=== PATIENT | female | born 1960 | race Caucasian/White ===

== ENCOUNTER → 2016-03-07 | Outpatient (CLI) | payer BC ==
[~2016-03-07] MED LIST: ADVI200T PO; ASPI81TA85 PO; Amberen PO; BENA25CA2 PO; BIOF4GEL2 EX; BIOF4GEL2 TOP; CENTTAB47 PO; CYCL5TA PO; DRIS50002 PO; DULO30CA PO; FLEX5TAB3 PO; GABA100C PO; OXYC-299 PO; PERC5TAB6 PO; TYLE325T5 PO; VICO5TAB PO; VICO5TAB16 PO; VITA500047 PO; VOLT1GEL2 TD; XANA0.5T PO; ZOFR4SOL PO; [UNRECOGNIZED DRUG - OTHER] PO; xanax PO
[2016-03-07 13:22] LABS: MEAN CORPUSCULAR HEMOGLOBIN 31.3 pg (27.0-33.0); MEAN CORPUSCULAR HGB CONC 33.4 g/dl (32.0-36.5); MEAN CORPUSCULAR VOLUME 93.6 fl (80.0-96.0); RED CELL DISTRIBUTION WIDTH 13.4 % (11.5-14.5); WHITE BLOOD COUNT 4.2 K/mm3 (4.0-10.0)
[2016-03-07 14:19] LABS: ALBUMIN 3.8 GM/DL (3.2-5.2); ALBUMIN/GLOBULIN RATIO 1.31 (1.00-1.93); ALKALINE PHOSPHATASE 79 U/L (45-117); ALT/SGPT 32 U/L (12-78); ANION GAP 7 MEQ/L (8-16); AST/SGOT 16 U/L (15-37); BILIRUBIN,TOTAL 0.5 MG/DL (0.2-1.0); BLOOD UREA NITROGEN 10 MG/DL (7-18); CALCIUM LEVEL 8.5 MG/DL (8.5-10.1); CARBON DIOXIDE LEVEL 28 MEQ/L (21-32); CHLORIDE LEVEL 108 MEQ/L (98-107); CHOLESTEROL LEVEL 189 MG/DL (<200); CREATININE FOR GFR 0.75 MG/DL (0.55-1.02); GLOMERULAR FILTRATION RATE > 60.0 (>51); GLUCOSE, FASTING 111 MG/DL (70-105); POTASSIUM SERUM 4.2 MEQ/L (3.5-5.1); SODIUM LEVEL 143 MEQ/L (136-145); TOTAL PROTEIN 6.7 GM/DL (6.4-8.2); TRIGLYCERIDES LEVEL 107 MG/DL (<150)
== END ==
LOC: M WUC 08:52
PROVIDERS: ATTEND Nurse Practitioner Adult Health
DX: Z00.00 Encounter for general adult medical examination without abnormal findings (principal); E55.9 Vitamin D deficiency, unspecified

== ENCOUNTER → 2016-05-04 | Outpatient (CLI) | payer BC ==
--- NOTE | 2016-05-04 09:38 | REPMRS ---
Patient History The patient states she has not had a clinical breast exam in over a year. Patient is postmenopausal. Family history of colorectal cancer in father at age 50 or over. Digital Woman Screen Mammo: May 04, 2016 - Exam #: [id number] Bilateral CC and MLO view(s) were taken. Technologist: Tory Estevez, Technologist Prior study comparison: December 05, 2013, digital woman screen mammo performed at [facility]. April 27, 2009, bilateral bilat screen digital mammo performed at [facility] to [facility]. FINDINGS: There are scattered fibroglandular densities. There has been no change in the appearance of the mammogram from the prior studies. There is a mild amount of residual fibroglandular tissue which is fairly symmetric. There is no interval development of dominant mass, architectural distortion, or clustered microcalcification suggestive of malignancy. ASSESSMENT: BI-RADS/ACR category 1 mammogram. Negative. Recommendation Routine screening mammogram in 1 year (for women over age 40). This mammogram was interpreted with the aid of an FDA-approved computer-aided dectection system. Electronically Signed By: Mick Goode MD 05/04/16 0923
== END ==
LOC: M WHC 08:25
PROVIDERS: ATTEND Nurse Practitioner Adult Health
DX: Z12.31 Encounter for screening mammogram for malignant neoplasm of breast (principal)

== ENCOUNTER → 2016-08-22 | Outpatient (CLI) | payer BC ==
[~2016-08-22] MED LIST changes: +OXYC-141 PO; -OXYC-299 PO; +PERC5TAB12 PO; -PERC5TAB6 PO
--- NOTE | 2016-08-22 14:38 | REP ---
Chest two views HISTORY: Pneumonia Comparison: 08/06/2014 The lungs are clear. The heart is normal in size. The pulmonary vasculature is normal in appearance. The bony structure is intact. IMPRESSION: No acute disease. Signed by Yuri Costa MD 08/22/2016 02:29 P
== END ==
LOC: M WUC 13:06
PROVIDERS: ATTEND Nurse Practitioner Adult Health
DX: J18.1 Lobar pneumonia, unspecified organism (principal)

== ENCOUNTER → 2016-10-06 | Outpatient (REF) | payer BC ==
[2016-10-06 15:52] LABS: PROGESTERONE < 0.2 NG/ML
[2016-10-06 15:53] LABS: ESTRADIOL < 19.0 PG/ML; FOLLICLE STIMULATING HORMONE 118.3 mIU/mL; LUTEINIZING HORMONE 47.1 mIU/mL
[2016-10-11 00:06] LABS: ESTRONE SERUM 60 pg/mL (.)
== END ==
LOC: M LAB REF 10:04
PROVIDERS: ATTEND Obstetrics & Gynecology
DX: N95.9 Unspecified menopausal and perimenopausal disorder (principal)

== ENCOUNTER → 2016-10-10 | Outpatient (CLI) | payer BC ==
[~2016-10-10] MED LIST changes: +METHACHOLINE KIT (J7674) INH ONE
--- NOTE | 2016-10-10 08:35 | PFTRPT ---
Tech: Sreekanth Arreguin RUST PROOFER Age: 56 Sex: Female Race: Height: 62.75 Inches Weight: 162.00 Lbs BSA: 1.76 Diagnosis: J30.2 PULMONARY FUNCTION REPORT ORDERING PROVIDER: CARLOS Valera DATE OF SERVICE: 10/10/16 SPIROMETRY: Excellent technical quality. The forced vital capacity is normal. The FEV1 is in proportion. The obstructive index is, therefore, normal. FLOW VOLUME LOOP: The expiratory limb of the flow volume loop is normal. LUNG VOLUMES: The total lung capacity is normal. The residual volume is generally in proportion. DIFFUSION CAPACITY: The diffusion capacity is mildly reduced, but is appropriate for alveolar volume. HEMOGLOBIN: No hemoglobin is available for correction. AIRWAY MECHANICS: Airways resistance and conductance are normal. IMPRESSION: Mild decline in the absolute diffusion capacity. Please correlate clinically. MTDD
--- NOTE | 2016-10-10 09:38 | PFTRPT ---
Tech: Sreekanth Arreguin COST CONTROLLER Age: 56 Sex: Female Race: Height: 62.75 Inches Weight: 162.00 Lbs BSA: 1.76 Diagnosis: J30.2 METHACHOLINE CHALLENGE REPORT: ORDERING PROVIDER: CARLOS Valera DATE OF SERVICE: 10/10/16 INTERPRETATION: The study was of excellent technical quality. Under protocol, methacholine was administered. At a dose of 10 mg (63.875 CDUs), a 20% decline in the FEV1 was noted. The PC20 of 8.58 is in the not clearly diagnostic range. IMPRESSION: Borderline methacholine challenge study in view of the above. Please correlate clinically. MTDD
== END ==
LOC: M CARPUL 07:56
PROVIDERS: ATTEND Nurse Practitioner Adult Health
DX: J30.2 Other seasonal allergic rhinitis (principal)
CPT/HCPCS: 94010; 94070; 94726; 94729; J7674

== ENCOUNTER → 2016-10-18 | Outpatient (REF) | payer BC ==
[~2016-10-18] MED LIST changes: -METHACHOLINE KIT (J7674) INH ONE
[2016-10-20 00:06] LABS: Lyme Disease IgG/IgM Antibodie <0.91 ISR (0.00-0.90); Lyme Disease IgM Ab Quantitati <0.80 index (0.00-0.79)
== END ==
LOC: M LABDRAW1 09:42
PROVIDERS: ATTEND Physician Assistant
DX: M17.0 Bilateral primary osteoarthritis of knee (principal)

== ENCOUNTER → 2017-01-26 | Outpatient (CLI) | payer MEDICARE ==
--- NOTE | 2017-01-26 11:28 | REP ---
PELVIC ULTRASOUND: Real-time sonographic evaluation of the pelvis performed utilizing transabdominal and endovaginal technique. The bladder measures 9.9 x 6.8 x 8.7 cm. Uterus measures 8.8 x 3.9 x 5.2 cm. Posterior fibroid measures 1.6 cm in diameter. Endometrial thickness is 4 mm within normal limits. There is no endometrial fluid collection. Ovaries are normal in size and echotexture, right ovary measuring 2.6 x 1.5 x 1.6 cm and left ovary 2.1 x 1.3 x 1.8 cm. There is no adnexal mass or free fluid. IMPRESSION: No endometrial thickening. Posterior fibroid measures 1.6 cm in diameter. Signed by Mick Goode MD 01/26/2017 12:57 P
== END ==
LOC: M WHC 08:34
PROVIDERS: ATTEND Obstetrics & Gynecology
DX: N95.0 Postmenopausal bleeding (principal)

== ENCOUNTER → 2017-11-28 | Outpatient (CLI) | payer OTHER | LOC: M WHC 08:43 | DX: Z12.31 Encounter for screening mammogram for malignant neoplasm of breast (principal); Z80.0 Family history of malignant neoplasm of digestive organs | CPT/HCPCS: 77067 ==

== ENCOUNTER → 2018-02-15 | Outpatient (REF) | payer OTHER ==
[~2018-02-15] MED LIST changes: -DRIS50002 PO; +DRIS50003 PO
[2018-02-15 14:51] LABS: HEMATOCRIT 45.7 % (36.0-47.0); HEMOGLOBIN 15.4 g/dl (12.0-15.5); MEAN CORPUSCULAR HEMOGLOBIN 32.3 pg (27.0-33.0); MEAN CORPUSCULAR HGB CONC 33.7 g/dl (32.0-36.5); MEAN CORPUSCULAR VOLUME 95.8 fl (80.0-96.0); PLATELET COUNT, AUTOMATED 276 10^3/uL (150-450); RED BLOOD COUNT 4.77 10^6/uL (4.00-5.40); WHITE BLOOD COUNT 5.6 10^3/uL (4.0-10.0)
[2018-02-15 14:58] LABS: FREE T4 0.98 NG/DL (0.76-1.46); THYROID STIMULATING HORMONE 3.71 uIU/ML (0.358-3.740)
== END ==
LOC: M SMT 13:07
PROVIDERS: ATTEND Advanced Practice Midwife
DX: N95.0 Postmenopausal bleeding (principal); N93.9 Abnormal uterine and vaginal bleeding, unspecified

== ENCOUNTER → 2018-02-16 | Outpatient (CLI) | payer OTHER ==
--- NOTE | 2018-02-16 12:46 | REP ---
PELVIC SONOGRAPHY: HISTORY: Postmenopausal bleeding times 1 year. FINDINGS: Transabdominal and transvaginal scanning are performed. Uterine dimensions are normal 8.9 x 4.8 x 5.9 cm. Endometrial echo is 2.1 cm and heterogeneous containing multiple tiny cystic areas. There is a posterior fibroid in the uterine myometrium measuring 1.5 cm in greatest diameter. The left ovary could not be visualized either transabdominally or transvaginally. No left adnexal abnormality is seen. Right ovary measures 4.0 x 1.9 x 1.9 cm and has intact blood flow. A small Nabothian cyst is seen in the cervix. IMPRESSION: Heterogeneous thickened endometrium. Rule out hyperplasia versus neoplasia. Electronically Signed by Mickey Hatfield MD 02/16/2018 07:13 P
== END ==
LOC: M SMT 09:38
PROVIDERS: ATTEND Advanced Practice Midwife
DX: N95.0 Postmenopausal bleeding (principal)

== ENCOUNTER → 2018-03-01 | Outpatient (REF) | payer OTHER ==
[2018-03-03 15:16] LABS: HPV HYBRID CAPTURE II Positive (Negative)
== END ==
LOC: M LAB REF 13:51
PROVIDERS: ATTEND Advanced Practice Midwife
DX: Z12.4 Encounter for screening for malignant neoplasm of cervix (principal); N95.0 Postmenopausal bleeding

== ENCOUNTER → 2018-04-17 | Outpatient (CLI) | payer OTHER ==
[~2018-04-17] MED LIST changes: +CLON1TAB8 PO; +MOTR200T44 PO; +MULTTAB PO; +PROAAER10 INH; +VIVANCE PO
--- NOTE | 2018-04-17 07:40 | ECGEPIP ---
Stationary ECG Study 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
== END ==
LOC: M EKG 07:03
PROVIDERS: ATTEND Anesthesiology
DX: Z01.810 Encounter for preprocedural cardiovascular examination (principal)

== ENCOUNTER 2018-04-26 11:57 | Day surgery (SDC) | payer OTHER ==
[~2018-04-26] VITALS: Ht 157.5 cm; Wt 75.8 kg
[~2018-04-26 11:57] MED LIST changes: +LR 1,000 ML IV ONE; -VIVANCE PO
[2018-04-26 12:26] LABS: HEMATOCRIT 43.7 % (36.0-47.0); HEMOGLOBIN 14.9 g/dl (12.0-15.5); MEAN CORPUSCULAR HEMOGLOBIN 32.7 pg (27.0-33.0); MEAN CORPUSCULAR HGB CONC 34.1 g/dl (32.0-36.5); PLATELET COUNT, AUTOMATED 267 10^3/uL (150-450); RED BLOOD COUNT 4.55 10^6/uL (4.00-5.40)
[2018-04-26] MEDS ORDERED: VIVANCE PO (12:37)
[2018-04-26] MEDS ORDERED: MIDAZOLAM INJ 2 MG/2 ML VIAL (J2250) As Ordered ONE (14:14)
[2018-04-26] MEDS ORDERED: LIDOCAINE 2% INJ 100 MG/5 ML SDV (FOR ANES.) As Ordered ONE (14:14)
[2018-04-26] MEDS ORDERED: PROPOFOL 200 MG/20 ML VIAL As Ordered ONE (14:14)
[2018-04-26] MEDS ORDERED: dexameTHASONE 4 MG/ML 1ML VIAL (J1100) As Ordered ONE (14:14)
[2018-04-26] MEDS ORDERED: fentaNYL 100 MCG/2 ML INJECTION (J3010) As Ordered ONE (14:14)
[2018-04-26] MEDS ORDERED: KETOROLAC 60 MG/2 ML VIAL (J1885) As Ordered ONE (14:42)
[2018-04-26] MEDS ORDERED: ONDANSETRON 4MG/2ML VIAL (J2405) As Ordered ONE (14:42)
[2018-04-26] MEDS ORDERED: LR 1,000 ML IV SCH (15:15)
[2018-04-26] MEDS ORDERED: ACETAMINOPHEN 500 MG TAB PO ONE (15:15)
[2018-04-26] MEDS ORDERED: fentaNYL 100 MCG/2 ML INJECTION (J3010) IV PRN (15:15)
[2018-04-26] MEDS ORDERED: NORCO, ANEXSIA 5/325MG TABLET (HYDROcodone/ACETAMINOPHEN) PO PRN (15:15)
--- NOTE | 2018-04-26 15:43 | RO ---
DATE OF PROCEDURE: 04/26/2018 PREPROCEDURE DIAGNOSIS: Postmenopausal bleeding. POSTPROCEDURE DIAGNOSIS: Postmenopausal bleeding. PROCEDURE: Hysterotomy, dilation and curettage (D and C). SURGEON: Yuri Lai MD SPECIAL EDUCATION RESOURCE ROOM TEACHER: ANESTHESIA: General endotracheal. ESTIMATED BLOOD LOSS: 30 mL URINE OUTPUT: 20 mL FINDINGS: Normal sized uterus. Lush endometrial tissue, moderate sized endometrial polyp attached to the fundus. Raised area in the posterior myometrium consistent with a small submucosal uterine fibroid, otherwise normal. DESCRIPTION OF PROCEDURE: The patient was taken to the operating room where general endotracheal anesthesia was induced. She was prepped and draped in a sterile fashion in the dorsal lithotomy position. The bladder was emptied with a catheter. A speculum was placed in the vagina and the anterior lip of the cervix was grasped with tenaculum. Cervix was dilated with tapered dilators. Diagnostic hysteroscope using the MyoSure scope was advanced through the cervical os. Visualization of the endometrial cavity revealed the findings noted above. The hysteroscope was removed. Sharp curettage was performed. A moderate polyp was removed at that time. The MyoSure device was placed back through the internal os. The MyoSure operative port was utilized and frags of tissue were removed using the MyoSure. The endometrial cavity appeared normal at the end of the procedure. All instruments were removed. Good hemostasis was noted. Sponge and instrument counts were correct.
[2018-04-26 16:15] VITALS: BP 125/88
== END 2018-04-26 16:40 | disposition home or self-care (01) ==
LOC: M SDC 11:57
PROVIDERS: ATTEND Specialist
DX: N95.0 Postmenopausal bleeding (principal); J45.909 Unspecified asthma, uncomplicated; E66.9 Obesity, unspecified; M54.81 Occipital neuralgia; F41.9 Anxiety disorder, unspecified; Z88.2 Allergy status to sulfonamides; Z91.030 Bee allergy status; Z87.81 Personal history of (healed) traumatic fracture
CPT/HCPCS: 36415; 58558; 85027; 88305; J1100; J1885; J2250; J2405; J3010

== ENCOUNTER 2018-06-11 10:57 | Emergency (ER) | payer OTHER ==
[~2018-06-11] VITALS: Ht 157.5 cm; Wt 78.4 kg
[~2018-06-11 10:57] MED LIST changes: -CYCL5TA PO; +CYCL5TAB5 PO; -DULO30CA PO; +DULO30CA9 PO; -LR 1,000 ML IV ONE; -VICO5TAB16 PO; +VICO5TAB17 PO; +VIVANCE PO
[2018-06-11] MEDS ORDERED: ALEV220T22 PO (11:06)
[2018-06-11] MEDS ORDERED: predniSONE 20 MG TAB PO ONE (11:45)
[2018-06-11] MEDS ORDERED: KETOROLAC TROMETHAMINE 10 MG TAB PO ONE (11:45)
[2018-06-11] MEDS ORDERED: PRED20TA PO ×2 (11:53→20:58)
[2018-06-11] MEDS ORDERED: CYCL10TA PO (11:53)
[2018-06-11 11:59] VITALS: BP 137/96
== END 2018-06-11 12:14 | disposition home or self-care (01) ==
LOC: M ED 10:57
DX: M54.12 Radiculopathy, cervical region (principal); M25.78 Osteophyte, vertebrae; Z88.2 Allergy status to sulfonamides; Z91.030 Bee allergy status; Z79.51 Long term (current) use of inhaled steroids; Z79.83 Long term (current) use of bisphosphonates; Z79.899 Other long term (current) drug therapy

== ENCOUNTER 2018-06-11 15:42 | Emergency (ER) | payer OTHER ==
[~2018-06-11] VITALS: Ht 157.5 cm; Wt 78.4 kg
[~2018-06-11 15:42] MED LIST changes: +ALEV220T22 PO; +CYCL10TA PO; +PRED20TA PO
[2018-06-11] MEDS ORDERED: LIDOCAINE 2% MDV 20 ML VIAL SC ONE (18:00)
[2018-06-11] MEDS ORDERED: PRED20TA PO (20:58)
[2018-06-11 20:59] VITALS: BP 130/77
--- NOTE | 2018-06-11 21:03 | REPVR ---
EXAM: MR Cervical Spine Without Contrast EXAM DATE/TIME: 06/11/2018 8:16 PM CLINICAL HISTORY: 57 years old, female; Pain and signs and symptoms; Neck pain; Patient HX: RT arm pain numbness; Additional info: Left radiculopathy, new weakness TECHNIQUE: Imaging protocol: Multiplanar magnetic resonance images of the cervical spine without contrast. COMPARISON: MRI-Spine,Cervical without con 11/30/2012 9:44 AM FINDINGS: Reversal of normal cervical lordosis, unchanged. No segmental malalignment. No fracture or destructive process. Vertebral body height and morphology is maintained. Mild degenerative reactive endplate changes are present in the mid and lower cervical spine, most prominent at C5-6, unchanged. Disc height loss is present no C5-6, C6-7 and C4-5 with unchanged pattern compared to the prior MRI Cervical cord is normal in morphology and signal. Imaged structures within the posterior fossa are unremarkable. C2-3: No significant canal or foraminal stenosis. C3-4: Minor disc/osteophyte complex with mild right foraminal narrowing. Patent canal. C4-5: No spinal canal or foraminal stenosis. C5-6: Ridging disc/osteophyte complex with patent spinal canal and mild bilateral foraminal narrowing. C6-7: Ridging disc/osteophyte complex with mild right and moderate left foraminal stenosis. C7-T1: No spinal canal or foraminal compromise No focal prevertebral soft tissue abnormality. IMPRESSION: No evidence of acute disc extrusion, myelopathy or significant change since prior MRI. Mild multilevel cervical spondylosis with predominantly mild canal and foraminal compromise as described above Electronically signed by: Ten Claros On 06/11/2018 21:03:05 PM
== END 2018-06-11 21:16 | disposition home or self-care (01) ==
LOC: M ED 15:42
DX: M47.22 Other spondylosis with radiculopathy, cervical region (principal); M25.78 Osteophyte, vertebrae; Z88.2 Allergy status to sulfonamides; Z91.030 Bee allergy status; Z79.51 Long term (current) use of inhaled steroids; Z79.83 Long term (current) use of bisphosphonates; Z79.899 Other long term (current) drug therapy

== ENCOUNTER 2018-10-16 09:02 | Emergency (ER) | payer OTHER ==
[~2018-10-16] VITALS: Ht 157.5 cm; Wt 75.5 kg
[2018-10-16] MEDS ORDERED: MORPHINE 4 MG/ML 1ML VIAL/SYRINGE (J2270) IV PRN (10:45)
[2018-10-16 11:22] LABS: BASO % 0.4 % (0.0-1.0); EOS # 0.2 10^3/uL (0.0-0.5); EOS % 1.6 % (0.0-3.0); HEMATOCRIT 42.8 % (36.0-47.0); HEMOGLOBIN 15.2 g/dl (12.0-15.5); LYMPH # 1.4 10^3/uL (1.5-5.0); LYMPH % 15.1 % (24.0-44.0); MEAN CORPUSCULAR HEMOGLOBIN 34.8 pg (27.0-33.0); MEAN CORPUSCULAR HGB CONC 35.5 g/dl (32.0-36.5); MEAN CORPUSCULAR VOLUME 97.9 fl (80.0-96.0); MONO # 0.5 10^3/uL (0.0-0.8); MONO % 5.6 % (0.0-5.0); NEUTROPHILS # 7.4 10^3/uL (1.5-8.5); PLATELET COUNT, AUTOMATED 264 10^3/uL (150-450); RED BLOOD COUNT 4.37 10^6/uL (4.00-5.40); WHITE BLOOD COUNT 9.5 10^3/uL (4.0-10.0)
[2018-10-16 11:32] LABS: INR 0.98; PROTHROMBIN TIME 12.7 SECONDS (11.8-14.0)
[2018-10-16 11:33] LABS: PARTIAL THROMBOPLASTIN TIME 23.8 SECONDS (25.0-38.4)
[2018-10-16 11:52] LABS: ALBUMIN 3.6 GM/DL (3.2-5.2); ALT/SGPT 35 U/L (12-78); BILIRUBIN,DIRECT 0.1 MG/DL (0.0-0.2); BILIRUBIN,TOTAL 0.6 MG/DL (0.2-1.0); BLOOD UREA NITROGEN 7 MG/DL (7-18); CALCIUM LEVEL 8.5 MG/DL (8.5-10.1); CARBON DIOXIDE LEVEL 27 MEQ/L (21-32); CHLORIDE LEVEL 106 MEQ/L (98-107); CK-MB VALUE MASS 2.6 NG/ML (<3.6); CPK CREATINE PHOSPHOKINASE 302 U/L (26-192); GLOMERULAR FILTRATION RATE > 60.0 (>51); GLUCOSE, FASTING 102 MG/DL (70-100); LIPASE 123 U/L (73-393); MB/CK RELATIVE INDEX 0.86 (< OR =4); POTASSIUM SERUM 4.1 MEQ/L (3.5-5.1); SODIUM LEVEL 139 MEQ/L (136-145); TOTAL PROTEIN 6.8 GM/DL (6.4-8.2); TROPONIN I < 0.02 NG/ML (< 0.10)
[2018-10-16] MEDS ORDERED: ISOVUE-370 76% 100ML VIAL (Q9967) As Ordered ONE (12:01)
--- NOTE | 2018-10-16 12:41 | REP ---
Clinical: Trauma. Technique: Axial contrast enhanced images from the lung bases to the pubic symphysis with coronal and sagittal re-formations using 100 ml Isovue 370 intravenous contrast material. Findings: Lung bases are clear. Visualized heart and pericardium normal. No evidence for solid organ injury. Liver, spleen, pancreas, bilateral adrenal glands and kidneys are normal. Subcentimeter benign splenic cyst noted. Cholelithiasis identified without evidence for acute cholecystitis. The enteric system is without obstruction or acute inflammatory process. No ascites. No free air. No adenopathy. Pelvis demonstrates normal bladder and age-appropriate uterus/adnexa. 2 cm enhancing lesion within the fundal portion of the uterus may represent small fibroid. Abdominal aorta and vasculature normal. Surrounding musculoskeletal structures are intact and without evidence for trauma/injury. Moderate degenerative changes to the lumbosacral spine noted. Impression: 1. No evidence for solid organ injury. 2. 1 cm splenic cyst likely benign/chronic. 3. Cholelithiasis. 4. 2 cm enhancing lesion within the uterus likely representing small fibroid. 5. No ascites. No free air. Electronically Signed by Paulino Danielson MD 10/16/2018 12:32 P
--- NOTE | 2018-10-16 12:44 | REP ---
Clinical: Trauma. Technique: Axial contrast enhanced images from the thoracic inlet to the upper abdomen with coronal and sagittal re-formations using 100 ml Isovue 370 intravenous contrast material. Findings: Bilateral lung jansen are relatively symmetric and well-aerated. No consolidation/contusion, effusion, or pneumothorax. Tracheobronchial tree is patent. No adenopathy. Mediastinum demonstrates normal thoracic aorta, pulmonary vasculature and heart/pericardium without evidence for mediastinal injury. Surrounding musculoskeletal structures appear intact without evidence for acute fracture or trauma. Impression: No acute mediastinal or pleuroparenchymal process. No evidence for acute thoracic trauma/injury. Electronically Signed by Paulino Danielson MD 10/16/2018 12:35 P
--- NOTE | 2018-10-16 13:16 | REP ---
CT brain without contrast: History: Trauma. No comparison study. Findings: Preliminary digital program schedule clerk radiograph is unremarkable. Bone window settings demonstrate an intact bony calvarium. There is minimal generalized volume loss. There is no evidence of intracranial hemorrhage. No acute infarction is seen. No mass or extra-axial fluid collection is seen. Impression: Mild generalized volume loss. No acute intracranial abnormality. Electronically Signed by Mickey Hatfield MD 10/16/2018 01:45 P
--- NOTE | 2018-10-16 13:22 | REP ---
CT study of the cervical spine without contrast: History: Trauma. Comparison is made with MRI study of the cervical spine from June 11, 2018. Technique: Helical scanning is acquired and overlapping 2 mm high resolution axial images were generated and reviewed at bone and soft tissue window settings. Coronal and sagittal multiplanar re-formations images are generated. CT findings: There is no evidence of cervical spine element fracture. No skull base fracture is seen. Cervical vertebral body heights are preserved. Alignment is normal. Facet joints are normally aligned bilaterally at each cervical level on multiplanar re-formations images. There is no evidence of intraspinal or paraspinal hematoma. No extra vertebral abnormality is seen. There is reversal of the normal cervical lordosis. Degenerative disc disease is seen in the cervical spine, most pronounced at C4-5, C5-6 and C6-7. There is osteoarthritis at the articulation between the dens and the anterior arch of C1. Facet hypertrophy is noted in the cervical spine, this is most pronounced on the right at C3-4. Impression: Degenerative spondylosis changes as depicted on MRI scan June 11, 2018. Otherwise negative CT study of the cervical spine without contrast. No fracture seen. Electronically Signed by Mickey Hatfield MD 10/16/2018 01:45 P
--- NOTE | 2018-10-16 13:25 | REP ---
Clinical: Trauma. Technique: Neutral and frog lateral views of the right femur. Findings: Arthritic changes at the hip and knee joint. No acute fracture or dislocation. No subcutaneous emphysema or foreign body. Impression: No acute fracture or dislocation. Electronically Signed by Paulino Danielson MD 10/16/2018 01:16 P
--- NOTE | 2018-10-16 13:26 | REP ---
Clinical: Trauma. Technique: AP and lateral views of the right tibia / fibula. Findings: Evidence of prior open reduction and fixation involving the proximal tibia and tibial plateau as well as suspected screw holes through the distal tibial shaft related to prior orthopedic fixation. Arthritic changes at the knee and ankle. No acute fracture dislocation. No subcutaneous emphysema. Impression: No acute fracture or dislocation. Electronically Signed by Paulino Danielson MD 10/16/2018 01:18 P
--- NOTE | 2018-10-16 13:27 | REP ---
CT lumbar spine without contrast: History: Trauma. Technique: Helical scanning is acquired and 4 mm axial images are generated. Coronal and sagittal MPR images are generated and reviewed. CT findings: There is a mild levoconvex curvature. Lumbar vertebral body heights are preserved alignment is otherwise normal. No fracture or collapse is seen. Pedicles and posterior elements are intact. There is no evidence of spondylolysis or spondylolisthesis. There are degenerative spondylosis changes. Degenerative disc disease is seen at each level from L1-2 through L4-5 with disc space narrowing and osteophyte formation. Vacuum phenomenon are seen at the L1-2, L2-3, and L3-4 disc levels. There is mild central canal stenosis at L4-5 due to developmentally short pedicles and diffuse disc bulging with ligamentum flavum and facet hypertrophy. At L3-4 there is mild central canal stenosis as well due to the same factors. Impression: Degenerative spondylosis changes. Mild central canal stenosis at L3-4 and L4-5. No traumatic abnormality. Electronically Signed by Mickey Hatfield MD 10/16/2018 01:45 P
--- NOTE | 2018-10-16 13:29 | REP ---
CT study of the thoracic spine without contrast: History: Trauma. Technique: Helical scanning is acquired. 4 mm axial images are reformatted. Coronal and sagittal MPR images are generated. CT findings: Thoracic vertebral body heights are preserved. No fracture or collapse is seen. There is mild discogenic spurring anteriorly at T9-10, T8-9, and to a lesser extent T7-8. Pedicles and posterior elements are intact. No malalignment is noted. No paravertebral soft-tissue swelling is appreciated. There are osteoarthritic changes at the costovertebral joints in the mid thoracic spine. Impression: No fracture or other traumatic abnormality noted. Electronically Signed by Mickey Hatfield MD 10/16/2018 01:45 P
[2018-10-16 13:32] VITALS: BP 125/86
--- NOTE | 2018-10-17 15:11 | ED PDOC ---
Post-Departure Follow-Up anisa casillas faxed formal report of ct abd/p for fu Melvi Lockett MD Oct 17, 2018 15:11
[2018-10-24] MEDS ORDERED: VYVA1CAP PO (08:05)
== END 2018-10-16 14:01 | disposition home or self-care (01) ==
LOC: M ED 09:02
DX: S16.1XXA Strain of muscle, fascia and tendon at neck level, initial encounter (principal); S80.11XA Contusion of right lower leg, initial encounter; S80.12XA Contusion of left lower leg, initial encounter; V43.52XA Car driver injured in collision with other type car in traffic accident, initial encounter; Y92.9 Unspecified place or not applicable; Y93.9 Activity, unspecified; Y99.9 Unspecified external cause status; J30.89 Other allergic rhinitis; F41.9 Anxiety disorder, unspecified; M51.9 Unspecified thoracic, thoracolumbar and lumbosacral intervertebral disc disorder; M54.81 Occipital neuralgia; D73.4 Cyst of spleen; K80.20 Calculus of gallbladder without cholecystitis without obstruction; N85.9 Noninflammatory disorder of uterus, unspecified; M47.812 Spondylosis without myelopathy or radiculopathy, cervical region; M47.816 Spondylosis without myelopathy or radiculopathy, lumbar region; M48.061 Spinal stenosis, lumbar region without neurogenic claudication; Z79.899 Other long term (current) drug therapy; Z88.2 Allergy status to sulfonamides; Z91.030 Bee allergy status
CPT/HCPCS: 36415; 70450; 71260; 72125; 72128; 72131; 73552; 73590; 74177; 80048; 80076; 82550; 82553; 83690; 84484; 85025; 85610; 85730; 93041; 94760; 96374; 99285; J2270; Q9967

== ENCOUNTER 2018-11-07 06:22 | Day surgery (SDC) | payer OTHER ==
[2018-11-07] VITALS (8 sets, daily range): BP systolic 116–136; BP diastolic 66–88
[~2018-11-07] VITALS: Ht 157.5 cm; Wt 79.4 kg
[~2018-11-07 06:22] MED LIST changes: +LR 1,000 ML IV ONE; +VYVA1CAP PO; +ceFAZolin SOD 2 GM in IV 1 EA IV ONE
[2018-11-07] MEDS ORDERED: BUPIVACAINE HCL 0.25% 10 ML VIAL As Ordered ONE (07:08)
[2018-11-07] MEDS ORDERED: METHYLENE BLUE 0.5% (5MG/ML) 10 ML AMP (PROVAYBLUE)(Q9968 PER 1MG) As Ordered ONE (07:08)
[2018-11-07] MEDS ORDERED: ceFAZolin 2 GM/D5W 50 ML IV BAG (J0690 PER 500MG) As Ordered ONE (07:09)
[2018-11-07] MEDS ORDERED: PROPOFOL 200 MG/20 ML VIAL As Ordered ONE (07:56)
[2018-11-07] MEDS ORDERED: fentaNYL 100 MCG/2 ML INJECTION (J3010) As Ordered ONE ×2 (07:56→10:00)
[2018-11-07] MEDS ORDERED: MIDAZOLAM INJ 2 MG/2 ML VIAL (J2250) As Ordered ONE (07:56)
[2018-11-07] MEDS ORDERED: ROCURONIUM BROMIDE 50 MG/5 ML VIAL As Ordered ONE ×2 (07:56→08:05)
[2018-11-07] MEDS ORDERED: HYDROmorphone HCL 2 MG/ML 1ML VIAL (J1170) As Ordered ONE (07:56)
[2018-11-07] MEDS ORDERED: LIDOCAINE 2% INJ 100 MG/5 ML SDV (FOR ANES.) As Ordered ONE (07:56)
[2018-11-07] MEDS ORDERED: dexameTHASONE 4 MG/ML 1ML VIAL (J1100) As Ordered ONE (07:56)
[2018-11-07] MEDS ORDERED: KETOROLAC 60 MG/2 ML VIAL (J1885) As Ordered ONE (08:22)
[2018-11-07] MEDS ORDERED: ONDANSETRON 4MG/2ML VIAL (J2405) As Ordered ONE (08:22)
[2018-11-07] MEDS ORDERED: SUGAMMADEX SODIUM 500 MG/5 ML VIAL (BRIDION) As Ordered ONE (08:23)
[2018-11-07] MEDS ORDERED: ONDANSETRON 4MG/2ML VIAL (J2405) IV PRN ×2 (10:00→13:00)
[2018-11-07] MEDS ORDERED: PERCOCET 5MG/325MG TAB PO PRN ×2 (10:00→10:15)
[2018-11-07] MEDS ORDERED: LR 1,000 ML IV SCH ×2 (10:00→10:15)
[2018-11-07] MEDS: fentaNYL 100 MCG/2 ML INJECTION (J3010) IV PRN ×4 (10:02→10:28)
[2018-11-07] MEDS ORDERED: MORPHINE 4 MG/ML 1ML VIAL/SYRINGE (J2270) IV PRN (10:15)
[2018-11-07] MEDS ORDERED: OXYC1TAB23 PO (10:19)
[2018-11-07] MEDS ORDERED: PERCOCET 5MG/325MG TAB As Ordered ONE (10:30)
[2018-11-07] MEDS: PERCOCET 5MG/325MG TAB PO PRN ×2 (15:00→20:14)
[2018-11-07] MEDS: KETOROLAC 30 MG/ML VIAL (J1885) IV PRN (18:46)
[2018-11-07] MEDS: DOCUSATE SODIUM 100 MG CAP PO SCH (20:14)
[2018-11-08] VITALS: BP 119/63
[2018-11-08] MEDS: PERCOCET 5MG/325MG TAB PO PRN (00:25)
[2018-11-08 04:00] VITALS: BP_SYST 119; BP_SYST 99; BP_DIAS 59; BP_DIAS 63
[2018-11-08] MEDS: KETOROLAC 30 MG/ML VIAL (J1885) IV PRN (05:28)
[2018-11-08] MEDS: DOCUSATE SODIUM 100 MG CAP PO SCH (07:49)
[2018-11-08 08:00] VITALS: BP 120/70
--- NOTE | 2018-11-08 08:21 | RO ---
DATE OF PROCEDURE: 11/07/2018 PREOPERATIVE DIAGNOSIS: Menorrhagia, endometrial hyperplasia. POSTOPERATIVE DIAGNOSIS: Menorrhagia, endometrial hyperplasia. PROCEDURE: Robotic-assisted laparoscopy hysterectomy. Bilateral salpingectomy. SURGEON: Dr. Yuri Lai PATCH MACHINE OPERATOR: Eileen Singh NP ANESTHESIA: General endotracheal. ESTIMATED BLOOD LOSS: 150 mL. URINE OUTPUT: 100 mL. FINDINGS: Mildly enlarged uterus. Normal fallopian tubes and ovaries. OPERATIVE SUMMARY: The patient taken to the operating room where general endotracheal anesthesia was induced. She was prepped and draped in sterile fashion in the dorsal lithotomy position. A Ruiz catheter was placed. A VCare uterine manipulator was placed. A periumbilical incision made with the scalpel. Veress needle was placed through this incision while tenting up on the skin of the abdomen. An intra-abdominal location of the Veress needle was assessed with the use of a saline filled syringe. A pneumoperitoneum was created. The Veress needle was removed. An 8 mm trocar using Netlistiport was inserted through this incision. A 5 mm scope with camera was used to visualize the abdomen and pelvis. Three 8 mm suprapubic ports were placed under direct visualization. The patient was placed in Trendelenburg position. The da Saranya surgical robot was docked to the port. Using the fenestrated bipolar instrument and the vessel sealer, the broad ligament attachments to the fallopian tube were coagulated and incised. The utero-ovarian ligaments and round ligaments were coagulated and incised. The anterior and posterior leaves of the broad ligament were . A bladder flap was created. The uterine vessels were coagulated and incised. A colpotomy was created at the level of the VCare cup using monopolar endoshears and extended circumferentially around the upper vagina. Specimen including the uterus, cervix and fallopian tubes was removed through the vagina. The vaginal cuff was closed with #1 V-Loc suture in a running fashion. The pelvis was irrigated. Good hemostasis was noted. Rossy and matrix was placed over the vaginal cuff. All instruments were removed. A cystoscopy was performed using the 70 degrees cystoscope. Bilateral ureteral jets were identified. There was no evidence of injury of the bladder. The cystoscope was removed. All ports were removed. The skin was closed with #4-0 Monocryl subcuticular sutures. Sponge, instrument and needle counts were correct. Eileen Singh NP, assisted throughout the procedure. She helped position the patient, insert the ports, and manipulated the uterus throughout the procedure. She subsequently removed the specimen and helped close.
[2018-11-08 12:25] VITALS: BP 134/73
== END 2018-11-08 14:20 | disposition home or self-care (01) ==
LOC: M SDC 06:22 → M PED 11:10 → M SDC 11-08 14:20
PROVIDERS: ATTEND Specialist
DX: N80.0 Endometriosis of uterus (principal); N92.0 Excessive and frequent menstruation with regular cycle; N85.00 Endometrial hyperplasia, unspecified; D25.1 Intramural leiomyoma of uterus; J45.909 Unspecified asthma, uncomplicated; F41.9 Anxiety disorder, unspecified; F32.9 Major depressive disorder, single episode, unspecified; Z91.030 Bee allergy status; Z88.2 Allergy status to sulfonamides; Z79.51 Long term (current) use of inhaled steroids; Z79.899 Other long term (current) drug therapy
CPT/HCPCS: 36415; 58571; 86850; 86900; 86901; 88307; 96374; 96376; J0690; J1100; J1170; J1885; J2250; J2405; J3010; Q9968

== ENCOUNTER → 2019-01-02 | Outpatient (REF) | payer OTHER ==
[~2019-01-02] MED LIST changes: -LR 1,000 ML IV ONE; +OXYC1TAB23 PO; -ceFAZolin SOD 2 GM in IV 1 EA IV ONE
[2019-01-02 12:04] LABS: HEMATOCRIT 42.4 % (36.0-47.0); HEMOGLOBIN 14.4 g/dl (12.0-15.5); MEAN CORPUSCULAR HEMOGLOBIN 33.3 pg (27.0-33.0); MEAN CORPUSCULAR VOLUME 98.1 fl (80.0-96.0); PLATELET COUNT, AUTOMATED 276 10^3/uL (150-450); RED BLOOD COUNT 4.32 10^6/uL (4.00-5.40); WHITE BLOOD COUNT 5.5 10^3/uL (4.0-10.0)
[2019-01-02 12:45] LABS: ALBUMIN 3.6 GM/DL (3.2-5.2); ALT/SGPT 26 U/L (12-78); BILIRUBIN,TOTAL 0.4 MG/DL (0.2-1.0); BLOOD UREA NITROGEN 11 MG/DL (7-18); CALCIUM LEVEL 8.8 MG/DL (8.5-10.1); CARBON DIOXIDE LEVEL 30 MEQ/L (21-32); CHLORIDE LEVEL 103 MEQ/L (98-107); CREATININE FOR GFR 0.76 MG/DL (0.55-1.30); FERRITIN 46 NG/ML (8-252); GLOMERULAR FILTRATION RATE > 60.0 (>51); GLUCOSE, FASTING 94 MG/DL (70-100); IRON (FE) 90 UG/DL (50-170); PERCENT SATURATION 26.5 % (13.2-45.0); POTASSIUM SERUM 4.4 MEQ/L (3.5-5.1); SODIUM LEVEL 139 MEQ/L (136-145); TOTAL IRON BINDING CAPACITY 339 UG/DL (250-450)
[2019-01-02 12:48] LABS: TOTAL 25(OH) VITAMIN D 35.7 NG/ML (30.0-100.0)
== END ==
LOC: M SFHCPLAZ 10:30
PROVIDERS: ATTEND Nurse Practitioner Adult Health
DX: E55.9 Vitamin D deficiency, unspecified (principal); R53.83 Other fatigue

== ENCOUNTER → 2019-04-08 | Outpatient (CLI) | payer OTHER ==
--- NOTE | 2019-04-08 09:22 | REPMRS ---
Patient History The patient states she had a clinical breast exam in 11/2018. Patient is postmenopausal. Family history of colorectal cancer at age 50 or over in father. No Hormone Replacement Therapy Digital Woman Screen Mammo: April 08, 2019 - Exam #: [id number] Bilateral CC and MLO view(s) were taken. Technologist: Hannah Iqbal, Technologist Prior study comparison: November 28, 2017, bilateral digital woman screen mammo performed at [facility]. May 04, 2016, digital woman screen mammo performed at [facility]. December 05, 2013, digital woman screen mammo performed at [facility]. FINDINGS: There are scattered fibroglandular densities. There has been no change in the appearance of the mammogram from the prior studies. There is a mild amount of scattered fibroglandular density which is fairly symmetric. There is no interval development of dominant mass, architectural distortion, or grouped microcalcification suggestive of malignancy. 3-D tomosynthesis shows no additional findings. Assessment: BI-RADS/ACR category 1 mammogram. Negative Mammogram. Recommendation Routine screening mammogram of both breasts in 1 year (for women over age 40). This patient's Lifetime Breast Cancer Risk is estimated at 7.9 %. This mammogram was interpreted with the aid of an FDA-approved computer-aided dectection system. Electronically Signed By: Lg Hatfield MD 04/08/19 0921
== END ==
LOC: M WHC 08:05
PROVIDERS: ATTEND Nurse Practitioner Adult Health
DX: Z12.31 Encounter for screening mammogram for malignant neoplasm of breast (principal); Z80.0 Family history of malignant neoplasm of digestive organs

== ENCOUNTER → 2019-07-18 | Outpatient (REF) | payer OTHER ==
[~2019-07-18] MED LIST changes: +CYCL-707 PO; -CYCL10TA PO
[2019-07-18 11:40] LABS: HEMATOCRIT 44.1 % (36.0-47.0); HEMOGLOBIN 15.2 g/dl (12.0-15.5); MEAN CORPUSCULAR HEMOGLOBIN 33.2 pg (27.0-33.0); MEAN CORPUSCULAR HGB CONC 34.5 g/dl (32.0-36.5); MEAN CORPUSCULAR VOLUME 96.3 fl (80.0-96.0); PLATELET COUNT, AUTOMATED 302 10^3/uL (150-450); RED BLOOD COUNT 4.58 10^6/uL (4.00-5.40); WHITE BLOOD COUNT 14.4 10^3/uL (4.0-10.0)
[2019-07-18 11:49] LABS: ALBUMIN 3.9 GM/DL (3.2-5.2); ALT/SGPT 33 U/L (12-78); BILIRUBIN,TOTAL 0.3 MG/DL (0.2-1.0); BLOOD UREA NITROGEN 10 MG/DL (7-18); CALCIUM LEVEL 9.1 MG/DL (8.8-10.2); CARBON DIOXIDE LEVEL 26 MEQ/L (21-32); CHLORIDE LEVEL 104 MEQ/L (98-107); CHOLESTEROL LEVEL 245 MG/DL (<200); CHOLESTEROL RISK RATIO 2.311 (<5); CREATININE FOR GFR 0.74 MG/DL (0.55-1.30); FERRITIN 41 NG/ML (8-252); GLOMERULAR FILTRATION RATE > 60.0 (>45); GLUCOSE, FASTING 133 MG/DL (70-100); HDL CHOLESTEROL 106 MG/DL (>40); IRON (FE) 101 UG/DL (50-170); LDL CHOLESTEROL 120 MG/DL (<100); NON-HDL-C 139 MG/DL; PERCENT SATURATION 27.7 % (13.2-45.0); POTASSIUM SERUM 5.1 MEQ/L (3.5-5.1); SODIUM LEVEL 139 MEQ/L (136-145); TOTAL IRON BINDING CAPACITY 365 UG/DL (250-450); TOTAL PROTEIN 7.6 GM/DL (6.4-8.2); TRIGLYCERIDES LEVEL 96 MG/DL (<150)
[2019-07-18 11:56] LABS: TOTAL 25(OH) VITAMIN D 41.4 NG/ML (30.0-100.0)
== END ==
LOC: M PLALAB 09:26
PROVIDERS: ATTEND Physician Assistant
DX: E55.9 Vitamin D deficiency, unspecified (principal); Z00.00 Encounter for general adult medical examination without abnormal findings; R53.82 Chronic fatigue, unspecified

== ENCOUNTER → 2019-10-07 | Outpatient (REF) | payer OTHER, SELFPAY ==
[~2019-10-07] MED LIST changes: -ASPI81TA85 PO; +ASPI81TA86 PO
== END ==
LOC: M LAB REF 17:56
PROVIDERS: ATTEND Advanced Practice Midwife
DX: R30.0 Dysuria (principal)

== ENCOUNTER → 2020-02-12 | Outpatient (CLI) | payer OTHER | LOC: M LABSMTC 10:50 | PROVIDERS: ATTEND Family Medicine | DX: Z20.828 Contact with and (suspected) exposure to other viral communicable diseases (principal) ==

== ENCOUNTER → 2020-02-28 | Outpatient (CLI) | payer OTHER ==
[2020-02-28 15:04] LABS: HEMATOCRIT 42.4 % (36.0-47.0); MEAN CORPUSCULAR HEMOGLOBIN 32.4 pg (27.0-33.0); MEAN CORPUSCULAR VOLUME 98.1 fl (80.0-96.0); PLATELET COUNT, AUTOMATED 275 10^3/uL (150-450); RED BLOOD COUNT 4.32 10^6/uL (4.00-5.40); WHITE BLOOD COUNT 5.5 10^3/uL (4.0-10.0)
[2020-02-28 15:31] LABS: HEMOGLOBIN A1c 5.3 %
[2020-02-28 16:00] LABS: ALBUMIN 3.8 GM/DL (3.2-5.2); ALT/SGPT 24 U/L (12-78); BILIRUBIN,TOTAL 0.3 MG/DL (0.2-1.0); BLOOD UREA NITROGEN 12 MG/DL (7-18); CALCIUM LEVEL 8.3 MG/DL (8.8-10.2); CARBON DIOXIDE LEVEL 32 MEQ/L (21-32); CHLORIDE LEVEL 106 MEQ/L (98-107); CHOLESTEROL LEVEL 188 MG/DL (<200); CHOLESTEROL RISK RATIO 2.506 (<5); CREATININE FOR GFR 0.77 MG/DL (0.55-1.30); FERRITIN 36 NG/ML (8-252); GLOMERULAR FILTRATION RATE > 60.0 (>45); GLUCOSE, FASTING 100 MG/DL (70-100); HDL CHOLESTEROL 75 MG/DL (>40); IRON (FE) 80 UG/DL (50-170); LDL CHOLESTEROL 93 MG/DL (<100); NON-HDL-C 113 MG/DL; POTASSIUM SERUM 4.6 MEQ/L (3.5-5.1); SODIUM LEVEL 141 MEQ/L (136-145); TRIGLYCERIDES LEVEL 98 MG/DL (<150)
[2020-03-04 08:09] LABS: IgG P18 AB Absent (.); IgG P23 AB Present (.); IgG P28 AB Absent (.); IgG P30 AB Absent (.); IgG P39 AB Absent (.); IgG P41 AB Present (.); IgG P45 AB Absent (.); IgG P66 AB Absent (.); IgG P93 AB Absent (.); IgM P23 AB Absent (.); IgM P39 AB Absent (.); IgM P41 AB Absent (.); LYME IgG WB INTERPRETATION Negative (.); LYME IgM WB INTERPRETATION Negative (.)
== END ==
LOC: M WUC 10:31
PROVIDERS: ATTEND Family Medicine
DX: E55.9 Vitamin D deficiency, unspecified (principal); R53.82 Chronic fatigue, unspecified; Z13.29 Encounter for screening for other suspected endocrine disorder; R73.9 Hyperglycemia, unspecified; W57.XXXD Bitten or stung by nonvenomous insect and other nonvenomous arthropods, subsequent encounter; R53.83 Other fatigue

== ENCOUNTER → 2020-04-14 | Outpatient (CLI) | payer OTHER ==
--- NOTE | 2020-04-14 08:53 | REP ---
INDICATION: R10.2 PELVIC PAIN COMPARISON: 02/16/2018 TECHNIQUE: Transabdominal pelvic ultrasound followed by transvaginal examination for better evaluation of the adnexa with color evaluation of the ovaries. FINDINGS: Bladder is collapsed. Patient is noted to be status post hysterectomy and no pelvic mass or abnormality is identified. Bilateral ovaries are normal in appearance and vascularity without evidence for torsion. Right ovary measures 1.7 x 0.6 x 1.0 cm; left ovary measures 1.3 x 0.6 x 1.2 cm. IMPRESSION: Prior hysterectomy. Otherwise, normal pelvic ultrasound. <Electronically signed by Paulino Danielson > 04/14/20 0849
== END ==
LOC: M WHC 07:26
PROVIDERS: ATTEND Advanced Practice Midwife
DX: R10.2 Pelvic and perineal pain (principal)

== ENCOUNTER → 2020-06-09 | Outpatient (CLI) | payer OTHER ==
--- NOTE | 2020-06-09 11:04 | REPMRS ---
Patient History The patient states she has not had a clinical breast exam in over a year. Family history of colorectal cancer at age 50 or over in father. No Hormone Replacement Therapy Patient states no breast complaints today. Patient has signed MRS History Sheet. Digital Woman Screen Mammo: June 09, 2020 - Exam #: [id number] Bilateral CC and MLO view(s) were taken. Technologist: Yuliana Gibson, Career Representative Prior study comparison: April 08, 2019, bilateral digital woman screen mammo performed at [facility]. November 28, 2017, bilateral digital woman screen mammo performed at [facility]. FINDINGS: There are scattered fibroglandular densities. Screening. Digital screening (2D) mammography was performed bilaterally in the CC and MLO projections. Additionally, breast tomosynthesis (3D mammography) was performed bilaterally in the CC and MLO projections. Todays exam was compared to the prior exams(s). By history, the patient has no complaints of a palpable breast abnormality or other significant breast complaints. The breasts are unchanged in size and shape. There are no lisa-soft tissue densities or spiculated masses. There is no internal architectural distortion. There are no suspicious lisa-calcific clusters. Skin thickening or nipple retraction is not present. IMPRESSION: BI-RADS Category 2- Benign Findings(s). There is no evidence of malignant alteration of the breasts. Followup examination recommended in one year. The Volpara volumetric breast density category is B, there are scattered areas of fibroglandular density. This mammogram was read with the assistance of [employer],an FDA approved computer aided detection system for mammography. The lifetime Tyrer-Cuzick score is 7.7 % Negative x-ray reports should not delay surgical consultation if a dominant or clinically suspicious mass is present. Not all breast cancers can be identified by mammography. Therefore, we recommend that you continue to perform regular breast self-examination and physical examination and then promptly contact your physician of any concerns or changes. Adenosis and dense breasts may obscure an underlying neoplasm. Assessment: BI-RADS/ACR category 2 mammogram. Benign Findings. Recommendation Routine screening mammogram of both breasts in 1 year. Electronically Signed By: Hilario Hilliard DO 06/09/20 1101
== END ==
LOC: M WHC 08:28
PROVIDERS: ATTEND Nurse Practitioner Adult Health
DX: Z12.31 Encounter for screening mammogram for malignant neoplasm of breast (principal); Z80.0 Family history of malignant neoplasm of digestive organs

== ENCOUNTER → 2020-12-24 | Outpatient (CLI) | payer OTHER ==
[2020-12-24 14:19] LABS: HEMATOCRIT 40.4 % (36.0-47.0); HEMOGLOBIN 13.5 g/dl (12.0-15.5); MEAN CORPUSCULAR HEMOGLOBIN 32.5 pg (27.0-33.0); MEAN CORPUSCULAR HGB CONC 33.4 g/dl (32.0-36.5); MEAN CORPUSCULAR VOLUME 97.3 fl (80.0-96.0); PLATELET COUNT, AUTOMATED 285 10^3/uL (150-450); RED BLOOD COUNT 4.15 10^6/uL (4.00-5.40); WHITE BLOOD COUNT 6.7 10^3/uL (4.0-10.0)
[2020-12-24 16:00] LABS: HEMOGLOBIN A1c 5.7 %
[2020-12-24 16:35] LABS: ALBUMIN 3.5 GM/DL (3.2-5.2); ALT/SGPT 23 U/L (12-78); BILIRUBIN,TOTAL 0.5 MG/DL (0.2-1.0); BLOOD UREA NITROGEN 11 MG/DL (7-18); CALCIUM LEVEL 8.2 MG/DL (8.8-10.2); CARBON DIOXIDE LEVEL 25 MEQ/L (21-32); CHLORIDE LEVEL 102 MEQ/L (98-107); CREATININE FOR GFR 0.83 MG/DL (0.55-1.30); GLOMERULAR FILTRATION RATE > 60.0 (>45); GLUCOSE, FASTING 153 MG/DL (70-100); POTASSIUM SERUM 3.8 MEQ/L (3.5-5.1); SODIUM LEVEL 136 MEQ/L (136-145); TOTAL PROTEIN 6.8 GM/DL (6.4-8.2); TROPONIN I < 0.02 NG/ML (< 0.10)
== END ==
LOC: M WUC 10:44
PROVIDERS: ATTEND Nurse Practitioner Adult Health
DX: R07.9 Chest pain, unspecified (principal); Z68.31 Body mass index [BMI] 31.0-31.9, adult

== ENCOUNTER → 2021-07-09 | Outpatient (CLI) | payer BC | LOC: M WHC 09:31 | PROVIDERS: ATTEND Nurse Practitioner Adult Health | DX: Z12.31 Encounter for screening mammogram for malignant neoplasm of breast (principal) ==

== ENCOUNTER → 2021-07-09 | Outpatient (CLI) | payer BC ==
[2021-07-09 14:15] LABS: ALT/SGPT 38 U/L (12-78); BILIRUBIN,TOTAL 0.4 MG/DL (0.2-1.0); BLOOD UREA NITROGEN 11 MG/DL (7-18); CALCIUM LEVEL 8.6 MG/DL (8.8-10.2); CARBON DIOXIDE LEVEL 29 MEQ/L (21-32); CHLORIDE LEVEL 104 MEQ/L (98-107); CHOLESTEROL LEVEL 200 MG/DL (<200); CHOLESTEROL RISK RATIO 2.325 (<5); CREATININE FOR GFR 0.72 MG/DL (0.55-1.30); GLOMERULAR FILTRATION RATE > 60.0 (>45); GLUCOSE, FASTING 95 MG/DL (70-100); HDL CHOLESTEROL 86 MG/DL (>40); LDL CHOLESTEROL 90 MG/DL (<100); NON-HDL-C 114 MG/DL; POTASSIUM SERUM 4.4 MEQ/L (3.5-5.1); SODIUM LEVEL 136 MEQ/L (136-145); TOTAL PROTEIN 7.5 GM/DL (6.4-8.2); TRIGLYCERIDES LEVEL 121 MG/DL (<150)
[2021-07-09 14:37] LABS: TOTAL 25(OH) VITAMIN D 64.5 NG/ML (30.0-100.0)
[2021-07-09 14:41] LABS: HEMOGLOBIN A1c 5.4 %
== END ==
LOC: M PLALAB 10:16
PROVIDERS: ATTEND Nurse Practitioner Adult Health
DX: Z00.00 Encounter for general adult medical examination without abnormal findings (principal); Z68.31 Body mass index [BMI] 31.0-31.9, adult; E55.9 Vitamin D deficiency, unspecified; Z13.220 Encounter for screening for lipoid disorders; Z13.29 Encounter for screening for other suspected endocrine disorder

== ENCOUNTER → 2022-01-19 | Outpatient (CLI) | payer BC | LOC: M PLAIMG 12:32 | PROVIDERS: ATTEND Physician Assistant | DX: R05.3 Chronic cough (principal) ==

== ENCOUNTER → 2022-01-21 | Outpatient (REF) | payer BC | LOC: M SFHCPLAZ 10:05 | PROVIDERS: ATTEND Physician Assistant | DX: R05.3 Chronic cough (principal) ==

== ENCOUNTER → 2022-02-08 | Outpatient (CLI) | payer BC ==
[2022-02-08 15:22] LABS: HEMATOCRIT 42.5 % (36.0-47.0); HEMOGLOBIN 13.8 g/dl (12.0-15.5); MEAN CORPUSCULAR HEMOGLOBIN 32.1 pg (27.0-33.0); MEAN CORPUSCULAR HGB CONC 32.5 g/dl (32.0-36.5); MEAN CORPUSCULAR VOLUME 98.8 fl (80.0-96.0); PLATELET COUNT, AUTOMATED 270 10^3/uL (150-450); WHITE BLOOD COUNT 11.1 10^3/uL (4.0-10.0)
[2022-02-08 15:47] LABS: ALBUMIN 3.6 G/DL (3.2-5.2); ALKALINE PHOSPHATASE 92 U/L (46-116); ALT/SGPT 26 U/L (7.0-40); AST/SGOT 19 U/L (<34); BILIRUBIN,TOTAL 0.4 MG/DL (0.3-1.2); BLOOD UREA NITROGEN 8 MG/DL (9-23); CALCIUM LEVEL 8.6 MG/DL (8.3-10.6); CARBON DIOXIDE LEVEL 30 MMOL/L (20-31); CHLORIDE LEVEL 100 MMOL/L (98-107); CREATININE FOR GFR 0.64 MG/DL (0.55-1.30); GLOMERULAR FILTRATION RATE > 60.0 (>45); GLUCOSE, FASTING 79 MG/DL (74-106); POTASSIUM SERUM 3.6 MMOL/L (3.5-5.1); SODIUM LEVEL 139 MMOL/L (136-145); TOTAL PROTEIN 6.5 G/DL (5.7-8.2)
== END ==
LOC: M PLALAB 12:50
PROVIDERS: ATTEND Nurse Practitioner Adult Health
DX: R05.3 Chronic cough (principal)

== ENCOUNTER → 2023-03-17 | Outpatient (CLI) | payer BC | LOC: M WHC 09:52 | PROVIDERS: ATTEND Nurse Practitioner Adult Health | DX: Z12.31 Encounter for screening mammogram for malignant neoplasm of breast (principal) ==

== ENCOUNTER → 2023-05-19 | Outpatient (CLI) | payer BC ==
[2023-05-19 13:22] LABS: HEMATOCRIT 44.4 % (36.0-47.0); HEMOGLOBIN 14.8 g/dl (12.0-15.5); MEAN CORPUSCULAR HGB CONC 33.3 g/dl (32.0-36.5); MEAN CORPUSCULAR VOLUME 98.9 fl (80.0-96.0); PLATELET COUNT, AUTOMATED 288 10^3/uL (150-450); RED BLOOD COUNT 4.49 10^6/uL (4.00-5.40); WHITE BLOOD COUNT 5.7 10^3/uL (4.0-10.0)
[2023-05-19 13:58] LABS: ALBUMIN 3.7 G/DL (3.2-5.2); ALKALINE PHOSPHATASE 93 U/L (46-116); ALT/SGPT 26 U/L (7.0-40); AST/SGOT 21 U/L (<34); BILIRUBIN,TOTAL 0.4 MG/DL (0.3-1.2); BLOOD UREA NITROGEN 11 MG/DL (9-23); CALCIUM LEVEL 9.3 MG/DL (8.3-10.6); CARBON DIOXIDE LEVEL 30 MMOL/L (20-31); CHLORIDE LEVEL 101 MMOL/L (98-107); FREE T4 0.94 NG/DL (0.89-1.76); GLOMERULAR FILTRATION RATE > 60.0 (>45); GLUCOSE, FASTING 92 MG/DL (74-106); POTASSIUM SERUM 4.1 MMOL/L (3.5-5.1); SODIUM LEVEL 136 MMOL/L (136-145); THYROID STIMULATING HORMONE 5.329 uIU/ML (0.55-4.78); TOTAL PROTEIN 6.8 G/DL (5.7-8.2)
== END ==
LOC: M PLALAB 09:09
PROVIDERS: ATTEND Nurse Practitioner Adult Health
DX: R53.82 Chronic fatigue, unspecified (principal)

== ENCOUNTER → 2023-07-03 | Outpatient (CLI) | payer BC ==
[2023-07-03 16:26] LABS: FREE T4 0.99 NG/DL (0.89-1.76); THYROID STIMULATING HORMONE 2.983 uIU/ML (0.55-4.78)
== END ==
LOC: M PLALAB 12:45
PROVIDERS: ATTEND Nurse Practitioner Adult Health
DX: R79.89 Other specified abnormal findings of blood chemistry (principal)

== ENCOUNTER → 2024-02-16 | Outpatient (CLI) | payer BC ==
[2024-02-16 16:20] LABS: ALBUMIN 3.9 G/DL (3.2-5.2); ALKALINE PHOSPHATASE 114 U/L (35-104); ALT/SGPT 36 U/L (7.0-40); AST/SGOT 30 U/L (<34); BILIRUBIN,TOTAL 0.4 MG/DL (0.3-1.2); BLOOD UREA NITROGEN 13 MG/DL (9-23); CALCIUM LEVEL 9.1 MG/DL (8.3-10.6); CARBON DIOXIDE LEVEL 34 MMOL/L (20-31); CHLORIDE LEVEL 103 MMOL/L (98-107); CHOLESTEROL LEVEL 257 MG/DL (<200); CHOLESTEROL RISK RATIO 2.39 (<5); CREATININE FOR GFR 0.64 MG/DL (0.55-1.30); GLOMERULAR FILTRATION RATE > 60.0 (>45); GLUCOSE, FASTING 102 MG/DL (74-106); HDL CHOLESTEROL 107.4 MG/DL (>40); LDL CHOLESTEROL 133.4 MG/DL (<100); NON-HDL-C 149.6 MG/DL; POTASSIUM SERUM 4.4 MMOL/L (3.5-5.1); SODIUM LEVEL 142 MMOL/L (136-145); TOTAL PROTEIN 7.5 G/DL (5.7-8.2); TRIGLYCERIDES LEVEL 81 MG/DL (<150)
[2024-02-16 16:22] LABS: FREE T4 1.05 NG/DL (0.89-1.76); THYROID STIMULATING HORMONE 4.564 uIU/ML (0.55-4.78)
[2024-02-16 17:05] LABS: HEMOGLOBIN A1c 5.5 % (4.0-6.0)
== END ==
LOC: M WUC 11:31
PROVIDERS: ATTEND Nurse Practitioner Adult Health
DX: E55.9 Vitamin D deficiency, unspecified (principal); R79.89 Other specified abnormal findings of blood chemistry; Z68.32 Body mass index [BMI] 32.0-32.9, adult; Z13.220 Encounter for screening for lipoid disorders

== ENCOUNTER → 2025-02-10 | Outpatient (CLI) | payer MEDICARE | LOC: M WUC 12:32 | PROVIDERS: ATTEND Registered Nurse | DX: J06.9 Acute upper respiratory infection, unspecified (principal); J45.909 Unspecified asthma, uncomplicated ==